=== PATIENT | male | born 1990 | race African-American/Black ===

== ENCOUNTER 2023-06-03 09:56 | Emergency (ER) | payer OTHER, SELFPAY ==
[2023-06-03 10:04] VITALS: BP 137/92; PULSE 69; RESP 18; TEMP 36.3; O2SAT 100; BMI 24.8
--- NOTE | 2023-06-03 10:21 | ED.NURSE ---
First Aid Nurse of dog -Sudeep Monaco [facility] division, [facility], #[phone]. [employer] was called and they are aware, they will be here to speak to Miles. information as to multiple coil winder was also shared.
[2023-06-03] MEDS: LIDOCAINE 1% 5 ml (pf) 5 ML VIAL 1 ML IM (10:35)
--- NOTE | 2023-06-03 10:43 | ED.GENADULT ---
HPI - General Adult General Chief complaint: Laceration/Wound Stated complaint: dog bite upper lip , bleeding Time Seen by Provider: 06/03/23 10:18 History of Present Illness HPI narrative: Patient is a 32-year-old male who was bit by a his in-laws dog in the upper lip through the vermilion border vertically on the left side of the midline. Good amount of bleeding. It now has slowed. He is in some discomfort. No other injuries. He believes he is up-to-date on tetanus we will confirm. He is not allergic to medicine, is allergic to shellfish. Related Data Home Medications Medication Instructions Recorded Confirmed No Known Home Medications 06/03/23 06/03/23 Allergies Allergy/AdvReac Type Severity Reaction Status Date / Time shellfish derived Allergy Verified 06/03/23 10:02 Review of Systems Narrative: No history of bleeding or no history of prior dog bites from this animal. PFSH PFSH Social History Smoking Status: Never smoker Do you use any of these nicotine containing products: None Second hand tobacco smoke exposure: No How often do you have a drink containing alcohol: 2-3 times a week How many standard drinks containing alcohol do you have on a typical day: 1 or 2 How often do you have six or more drinks on one occasion: Never AUDIT-C Alcohol total score: 3 Non-prescribed substance use: denies use service: No Exam Narrative: Exam Narrative: Objective: There is a vertical laceration through the vermilion border on the left side of midline about 3 cm long. Does not involve the inside of the mouth, there was some mouth looks unremarkable. Vital signs unremarkable. Const: Vital Signs, click to edit/add: Vital Signs - 24 hr 06/03/23 10:04 Temperature 97.4 F L Pulse Rate [Pulse Oximeter] 69 Respiratory Rate 18 Blood Pressure [Ri ght Upper Arm] 137/92 H Pulse Oximetry 100 Oxygen Delivery Me thod Room Air Course Vital Signs Vital signs: Initial Vital Signs Temperature 97.4 F L 06/03/23 10:04 Temperature Source Temporal Artery Scan 06/03/23 10:04 Pulse Rate 69 06/03/23 10:04 Pulse Rhythm Regular 06/03/23 10:04 Respiratory Rate 18 06/03/23 10:04 Blood Pressure 137/92 H 06/03/23 10:04 Blood Pressure Mean 107 H 06/03/23 10:04 Blood Pressure Position Supine 06/03/23 10:04 Pulse Oximetry 100 06/03/23 10:04 Oxygen Delivery Method Room Air 06/03/23 10:04 Vital Signs Temperature 97.4 F L 06/03/23 10:04 Pulse Rate 69 06/03/23 10:04 Respiratory Rate 18 06/03/23 10:04 Blood Pressure 137/92 H 06/03/23 10:04 Pulse Oximetry 100 06/03/23 10:04 Oxygen Delivery Method Room Air 06/03/23 10:04 Temperature 97.4 F L 06/03/23 10:04 Pulse Rate 69 06/03/23 10:04 Respiratory Rate 18 06/03/23 10:04 Blood Pressure 137/92 H 06/03/23 10:04 Pulse Oximetry 100 06/03/23 10:04 Oxygen Delivery Method Room Air 06/03/23 10:04 Medications Administered Medications: Discontinued Medications Generic Name Dose Route Start Last Admin Trade Name Freq PRN Reason Stop Dose Admin Cephalexin HCl 500 mg 06/03/23 10:41 06/03/23 10:47 Cephalexin 500 Mg Capsule PO 06/03/23 10:42 500 mg ONCE ONE Administration Diphtheria/Tetanus/Acell Pertussis 0.5 ml 06/03/23 10:48 06/03/23 10:55 Tetanus/Diphth/Pertussis 0.5 Ml Syringe IM 06/03/23 10:49 0.5 ml .ONCE ONE Administration Lidocaine HCl 1 ml 06/03/23 10:56 06/03/23 10:35 Lidocaine 1% 5 Ml (Pf) 5 Ml Vial IM 1 ml DIRECTED PRN Administration Pain Medical Decision Making MDM Narrative Medical decision making narrative: 32-year-old male with a vertical remain border violating laceration dog bite to the left upper border. Procedure: After sterile eyes a zambrano 1% xylocaine without epinephrine used for anesthesia 150 Ethilon suture placed to approximate the vermilion border which was met with satisfaction to the family members and I felt it was well approximated as well on the superior aspect of the lip. Then silk sutures were placed times 3, and 1 Ethilon 4-0 was placed in the face just above the vermilion border. Good skin edge approximation good hemostasis. Keflex given orally, will send in a prescription for Augmentin. This will be gotten through [facility] We are checking on his tetanus status. He will need suture removal in about 7 days, watch for infection redness, light activity light diet warm walk warm rinsing mouth rinses with simply water Discharge Plan Discharge Clinical Impression: Animal bite, Laceration Patient Disposition: Home w/ Parent or Adult Condition: Improved Additional Instructions: Rinse mouth out with water and spit for the next couple hours, then may start eating light diet, full liquids and advance as tolerated. Suture removal in about a week. Will give you Augmentin twice a day for the next 7 days to prevent infection. We are checking under tetanus status Activity Level: Light activity Discharge Diet: Full Liquid Diet Detail: Advance diet as tolerated Prescriptions: No Action No Known Home Medications Stand Alone Forms: [employer] Info Instructions
[2023-06-03] MEDS: cephALEXin 500 MG CAPSULE PO (10:47)
[2023-06-03] MEDS: TETANUS/DIPHTH/PERTUSSIS 0.5 ML SYRINGE IM (10:55)
== END 2023-06-03 11:17 | disposition home or self-care (01) ==
PROVIDERS: Emergency Provider Family Medicine
DX: S01.551A Open bite of lip, initial encounter (principal); W54.0XXA Bitten by dog, initial encounter
CPT/HCPCS: 12011; 90471; 90715; 99283; 99284; A9270